=== PATIENT | male | born 1995 | race American Indian/Alaskan Native ===

== ENCOUNTER 2018-07-07 21:27 | Emergency (ER) | payer SELFPAY ==
[2018-07-07 22:05] VITALS: BMI 24.4
[2018-07-07 23:13] VITALS: RESP 20
[2018-07-07] MEDS ORDERED: Sodium Chloride 0.9% 1,000 ML IV STA (23:40)
[2018-07-08 01:22] LABS: ALB/GLOB RATIO 1.1 (1.1-1.8); ALBUMIN 4.3 g/dL (3.0-4.8); ALT/SGPT 21 U/L (7-56); AST/SGOT 38 U/L (17-59); BLOOD UREA NITROGEN 18 mg/dL (7-21); CALCIUM 9.6 mg/dL (8.4-10.5); GFR NON-AFRICAN AMERICAN > 60; LIPASE 50 U/L (23-300)
[2018-07-08 01:28] LABS: BASO # 0.02 K/mm3 (0.0-2.0); BASO % 0.2 % (0.0-3.0); EOS # 0.2 (0.0-0.7); EOS % 2.3 % (1.5-5.0); GRAN # 6.2 (1.4-6.5); GRAN % 71.8 % (50.0-68.0); HEMOGLOBIN 14.1 g/dL (14.0-18.0); LYMPH # 1.6 (1.2-3.4); LYMPH % 18.7 % (22.0-35.0); MEAN CELL VOLUME 83.8 fl (80.0-105.0); MEAN CORPUSCULAR HEMOGLOBIN 28.3 pg (25.0-35.0); MEAN CORPUSCULAR HGB CONC 33.7 g/dl (31.0-37.0); MEAN PLATELET VOLUME 10.2 fl (7.0-11.0); MONO # 0.6 (0.1-0.6); RBC 4.99 10^6/uL (3.5-6.1); RED CELL DISTRIBUTION WIDTH 12.8 % (11.5-14.5); WHITE BLOOD COUNT 8.6 10^3/uL (4.5-11.0)
--- NOTE | 2018-07-08 02:40 | ED PDOC ---
Arrival/HPI - History of Present Illness Narrative History of Present Illness (Text): 07/08/18 02:36 23 yo M Patient complains of generalized crampy abdominal pain, associated with nausea, multiple episodes of vomiting and diarrhea, which started a few hours after eating take out pizza. Otherwise: (-) travel, (-) sick contacts, (-) fever, (-) recent antibiotic use, (-) hematochezia. Has no other symptoms or complaints. <Melissa Garcia PA-C - Last Filed: 07/08/18 02:36> <Naun Russell - Last Filed: 07/08/18 02:49> - General Chief Complaint: Abdominal Pain Time Seen by Provider: 07/07/18 22:07 Past Medical History - Infectious Disease Hx of Infectious Diseases: None - Psychiatric Hx Substance Use: No <Melissa Garcia PA-C - Last Filed: 07/08/18 02:36> Family/Social History Family/Social History: No Known Family HX Smoking Status: Never Smoked Hx Alcohol Use: No Hx Substance Use: No <Melissa Garcia PA-C - Last Filed: 07/08/18 02:36> Allergies/Home Meds <Melissa Garcia PA-C - Last Filed: 07/08/18 02:36> <Naun Russell - Last Filed: 07/08/18 02:49> Allergies/Adverse Reactions: Allergies No Known Allergies Allergy (Verified 07/07/18 22:05) Review of Systems - Review of Systems Constitutional: absent: Fatigue, Fevers Respiratory: absent: SOB, Cough, Sputum Cardiovascular: absent: Chest Pain, Palpitations Gastrointestinal: Abdominal Pain, Diarrhea, Nausea, Vomiting Genitourinary Male: absent: Dysuria, Frequency Musculoskeletal: absent: Arthralgias, Back Pain Skin: absent: Rash, Pruritis, Skin Lesions Neurological: absent: Headache, Dizziness <Melissa Garcia PA-C - Last Filed: 07/08/18 02:36> Physical Exam Vital Signs Temp Pulse Resp BP Pulse Ox 07/08/18 01:31 98.1 F 76 20 143/65 99 07/07/18 22:10 98.4 F 74 20 139/60 99 Temperature: Afebrile Blood Pressure: Normal Pulse: Regular Respiratory Rate: Normal Appearance: Positive for: Well-Appearing, Non-Toxic, Comfortable Pain Distress: Mild Mental Status: Positive for: Alert and Oriented X 3 - Systems Exam Head: Present: Atraumatic, Normocephalic Pupils: Present: PERRL Extroacular Muscles: Present: EOMI Conjunctiva: Present: Normal Mouth: Present: Moist Mucous Membranes Neck: Present: Normal Range of Motion Respiratory/Chest: Present: Clear to Auscultation, Good Air Exchange. No: Respiratory Distress, Accessory Muscle Use Cardiovascular: Present: Regular Rate and Rhythm, Normal S1, S2. No: Murmurs Abdomen: No: Tenderness, Distention, Peritoneal Signs Back: Present: Normal Inspection Upper Extremity: Present: Normal Inspection. No: Cyanosis, Edema Lower Extremity: Present: Normal Inspection. No: Edema Neurological: Present: GCS=15, CN II-XII Intact, Speech Normal Skin: Present: Warm, Dry, Normal Color. No: Rashes Psychiatric: Present: Alert, Oriented x 3, Normal Insight, Normal Concentration <Melissa Garcia PA-C - Last Filed: 07/08/18 02:36> Vital Signs Temp Pulse Resp BP Pulse Ox 07/08/18 01:31 98.1 F 76 20 143/65 99 07/07/18 22:10 98.4 F 74 20 139/60 99 <Naun Russell - Last Filed: 07/08/18 02:49> Medical Decision Making - Lab Interpretations Lab Results: 07/08/18 00:17 07/08/18 00:17 Lab Results 07/08/18 00:17: Sodium 137, Potassium 4.3, Chloride 103, Carbon Dioxide 27, Anion Gap 11, BUN 18, Creatinine 1.0, Est GFR ( Amer) > 60, Est GFR (Non- Af Amer) > 60, Random Glucose 86, Calcium 9.6, Magnesium 1.9, Total Bilirubin 0.9, AST 38, ALT 21, Alkaline Phosphatase 80, Total Protein 8.2, Albumin 4.3, Globulin 3.9, Albumin/Globulin Ratio 1.1, Lipase 50 07/08/18 00:17: WBC 8.6, RBC 4.99, Hgb 14.1, Hct 41.8 L, MCV 83.8, MCH 28.3, MCHC 33.7, RDW 12.8, Plt Count 246, MPV 10.2, Gran % 71.8 H, Lymph % (Auto) 18.7 L, [place] % (Auto) 7.0 H, Eos % (Auto) 2.3, Baso % (Auto) 0.2, Gran # 6.20, Lymph # (Auto) 1.6, [place] # (Auto) 0.6, Eos # (Auto) 0.2, Baso # (Auto) 0.02 - Medication Orders Current Medication Orders: Discontinued Medications Famotidine (Pepcid) 20 mg IVP STAT STA Stop: 07/07/18 23:41 Last Admin: 07/08/18 00:27 Dose: 20 mg IVP Administration Document 07/08/18 00:27 [facility] (Rec: 07/08/18 00:27 [id number] Charges for Administration # of IVP Administrations 1 Sodium Chloride (Sodium Chloride 0.9%) 1,000 mls @ 1,000 mls/hr IV .Q1H STA Stop: 07/08/18 00:39 Last Admin: 07/08/18 00:27 Dose: 1,000 mls/hr eMAR Start Stop Document 07/08/18 00:27 [facility] (Rec: 07/08/18 00:28 [id number] Intravenous Solution Start Date 07/08/18 Start Time 00:27 End Date 07/08/18 End time 00:28 Total Infusion Time 1 Ondansetron HCl (Zofran Inj) 4 mg IVP STAT STA Stop: 07/07/18 23:41 Last Admin: 07/08/18 00:28 Dose: 4 mg IVP Administration Document 07/08/18 00:28 [facility] (Rec: 07/08/18 00:28 [id number] Charges for Administration # of IVP Administrations 1 <Melissa Garcia PA-C - Last Filed: 07/08/18 02:36> - Lab Interpretations Lab Results: 07/08/18 00:17 07/08/18 00:17 Lab Results 07/08/18 00:17: Sodium 137, Potassium 4.3, Chloride 103, Carbon Dioxide 27, Anion Gap 11, BUN 18, Creatinine 1.0, Est GFR ( Amer) > 60, Est GFR (Non- Af Amer) > 60, Random Glucose 86, Calcium 9.6, Magnesium 1.9, Total Bilirubin 0.9, AST 38, ALT 21, Alkaline Phosphatase 80, Total Protein 8.2, Albumin 4.3, Globulin 3.9, Albumin/Globulin Ratio 1.1, Lipase 50 07/08/18 00:17: WBC 8.6, RBC 4.99, Hgb 14.1, Hct 41.8 L, MCV 83.8, MCH 28.3, MCHC 33.7, RDW 12.8, Plt Count 246, MPV 10.2, Gran % 71.8 H, Lymph % (Auto) 18.7 L, [place] % (Auto) 7.0 H, Eos % (Auto) 2.3, Baso % (Auto) 0.2, Gran # 6.20, Lymph # (Auto) 1.6, [place] # (Auto) 0.6, Eos # (Auto) 0.2, Baso # (Auto) 0.02 - Medication Orders Current Medication Orders: Discontinued Medications Famotidine (Pepcid) 20 mg IVP STAT STA Stop: 07/07/18 23:41 Last Admin: 07/08/18 00:27 Dose: 20 mg IVP Administration Document 07/08/18 00:[address] [facility] (Rec: 07/08/18 00:27 [id number]) Charges for Administration # of IVP Administrations 1 Sodium Chloride (Sodium Chloride 0.9%) 1,000 mls @ 1,000 mls/hr IV .Q1H STA Stop: 07/08/18 00:39 Last Admin: 07/08/18 00:27 Dose: 1,000 mls/hr eMAR Start Stop Document 07/08/18 00:27 [facility] (Rec: 07/08/18 00:28 [id number] Intravenous Solution Start Date 07/08/18 Start Time 00:27 End Date 07/08/18 End time 00:28 Total Infusion Time 1 Ondansetron HCl (Zofran Inj) 4 mg IVP STAT STA Stop: 07/07/18 23:41 Last Admin: 07/08/18 00:28 Dose: 4 mg IVP Administration Document 07/08/18 00:28 [facility]CS (Rec: 07/08/18 00:28 [id number]) Charges for Administration # of IVP Administrations 1 <Naun Russell - Last Filed: 07/08/18 02:49> - PA / PHONE TECHNICIAN / Resident Statement REID has reviewed & agrees with the documentation as recorded. <Melissa Garcia PA-C - Last Filed: 07/08/18 02:36> - PA / PHONE TECHNICIAN / Resident Statement REID has reviewed & agrees with the documentation as recorded. <YvonneNaun - Last Filed: 07/08/18 02:49> Disposition/Present on Arrival - Present on Arrival Any Indicators Present on Arrival: No History of DVT/PE: No History of Uncontrolled Diabetes: No Urinary Catheter: No History of Decub. Ulcer: No History Surgical Site Infection Following: None - Disposition Have Diagnosis and Disposition been Completed?: Yes Disposition Time: 02:30 Patient Plan: Discharge <Melissa Garcia PA-C - Last Filed: 07/08/18 02:36> <YvonneNaun - Last Filed: 07/08/18 02:49> - Disposition Diagnosis: Acute gastroenteritis Disposition: HOME/ ROUTINE Patient Problems: Current Active Problems Problem Status Onset Acute gastroenteritis Acute Condition: STABLE Discharge Instructions (ExitCare): Gastroenteritis (DC), Gastroenteritis (GEN) Additional Instructions: Thank you for letting us take care of you today. You were treated for acute gastroenteritis. The emergency medical care you received today was directed at your acute symptoms. If you were prescribed any medication, please fill it and take as directed. It may take several days for your symptoms to resolve. Return to the Emergency Department if your symptoms worsen, do not improve, or if you have any other problems. Please contact your doctor in 2 days for re-evaluation and follow up. Bring any paperwork you were given at discharge with you along with any medications you are taking to your follow up visit. Our treatment cannot replace ongoing medical care by a primary care provider (PCP) outside of the emergency department. Thank you for allowing the [facility] team to be part of your care today. Prescriptions: Dicyclomine [Bentyl] 20 mg PO QID PRN #20 tab PRN Reason: Other Ondansetron ODT [Zofran ODT] 4 mg PO DAILY PRN #20 odt PRN Reason: Nausea/Vomiting Referrals: PCP,NO [Primary Care Provider] - Follow up with primary Forms: [employer] ([place]), SCHOOL NOTE
[2018-07-08 02:55] VITALS: BP 141/85; PULSE 88; TEMP 97.8; O2SAT 100
== END 2018-07-08 02:55 | disposition home or self-care (01) ==
LOC: ED 21:27
DX: K52.9 Noninfective gastroenteritis and colitis, unspecified (principal)
CPT/HCPCS: 80053; 83690; 83735; 85025; 96374; 96375; 99283; J2405; J7030

== ENCOUNTER 2018-12-06 08:47 | Emergency (ER) | payer MEDICAID ==
[2018-12-06 08:50] VITALS: BMI 25.0
[2018-12-06] MEDS ORDERED: DiphenhydrAMINE 50 mg/ml Inj IVP STA (09:17)
[2018-12-06] MEDS ORDERED: Sodium Chloride 0.9% 1,000 ML IV STA (09:19)
--- NOTE | 2018-12-06 09:21 | ED PDOC ---
Arrival/HPI <Opal Hamilton - Last Filed: 12/06/18 12:02> - General Historian: Patient, Parent (Mother) - History of Present Illness Narrative History of Present Illness (Text): 12/06/18 09:16 A 23 year old male, with no significant past medical history, presents to the emergency department with a complaint of headache, generalized body aches, cough, and associated nausea. Patient notes that his headache began yesterday at around 1:30 PM. Patient notes that he took Ibuprofen at around 9 PM yesterday which improved his symptoms. Patient states that he woke up with the headache today and body aches. Patient notes that he has experienced headaches in the [place] [address], but states that this is the worst headache of his life. He denies fevers, chills, dizziness, chest pain, shortness of breath, dyspnea on exertion, abdominal pain, vomiting, diarrhea, urinary/bowel changes, or any other complaint. Symptom Onset: Sudden Symptom Course: Unchanged Activities at Onset: Rest, Light Context: Home <Antwon Vasquez - Last Filed: 12/08/18 14:33> - General Chief Complaint: Headache Past Medical History - Provider Review Nursing Documentation Reviewed: Yes - Infectious Disease Hx of Infectious Diseases: None - Psychiatric Hx Substance Use: No <Antwon Vasquez - Last Filed: 12/08/18 14:33> Family/Social History - Physician Review Nursing Documentation Reviewed: Yes Family/Social History: No Known Family HX Smoking Status: Never Smoked Hx Alcohol Use: No Hx Substance Use: No <Antwon Vasquez - Last Filed: 12/08/18 14:33> Allergies/Home Meds <Opal Hamilton - Last Filed: 12/06/18 12:02> <Antwon Vasquez - Last Filed: 12/08/18 14:33> Allergies/Adverse Reactions: Allergies No Known Allergies Allergy (Verified 12/06/18 08:50) Home Medications: Home Meds Medication Instructions Recorded Confirmed No Known Home Med 12/06/18 12/06/18 Review of Systems - Physician Review All systems were reviewed & negative as marked: Yes - Review of Systems Constitutional: absent: Fevers Respiratory: Cough. absent: SOB Cardiovascular: absent: Chest Pain, SCHRADER Gastrointestinal: Nausea. absent: Abdominal Pain, Stool Changes, Diarrhea, Vomiting Genitourinary Male: absent: Urinary Output Changes Musculoskeletal: Myalgias (Generalized body aches) Neurological: Headache. absent: Dizziness <Antwon Vasquez - Last Filed: 12/08/18 14:33> Physical Exam Vital Signs Temp Pulse Resp BP Pulse Ox 12/06/18 08:50 98.7 F 91 H 16 124/51 L 98 <Opal Hamilton - Last Filed: 12/06/18 12:02> Vital Signs Reviewed: Yes Vital Signs Temp Pulse Resp BP Pulse Ox 12/06/18 08:50 98.7 F 91 H 16 124/51 L 98 Temperature: Afebrile Blood Pressure: Hypotensive Pulse: Tachycardic Respiratory Rate: Normal Appearance: Positive for: Well-Appearing, Non-Toxic, Comfortable Pain Distress: None Mental Status: Positive for: Alert and Oriented X 3 - Systems Exam Head: Present: Atraumatic, Normocephalic Pupils: Present: PERRL Extroacular Muscles: Present: EOMI Conjunctiva: Present: Normal Mouth: Present: Moist Mucous Membranes Pharnyx: No: ERYTHEMA, EXUDATE, Uvular Deviation (Uvula midline) Neck: Present: Normal Range of Motion Respiratory/Chest: Present: Clear to Auscultation, Good Air Exchange. No: Respiratory Distress, Accessory Muscle Use Cardiovascular: Present: Regular Rate and Rhythm, Normal S1, S2. No: Murmurs Abdomen: No: Tenderness, Distention, Peritoneal Signs Back: Present: Normal Inspection Upper Extremity: Present: Normal Inspection, Neurovascularly Intact (Good strength). No: Cyanosis, Edema Lower Extremity: Present: Normal Inspection, Neurovascularly Intact (Good strength). No: Edema Neurological: Present: GCS=15, CN II-XII Intact, Speech Normal Skin: Present: Warm, Dry, Normal Color. No: Rashes Psychiatric: Present: Alert, Oriented x 3, Normal Insight, Normal Concentration <Antwon Vasquez - Last Filed: 12/08/18 14:33> Medical Decision Making ED Course and Treatment: 12/06/18 12:04 Explained to patient the benefits of staying for further work-up and treatment. Explained the risks of leaving, including but not limited to, worsening of symptoms, infection, sepsis, blindness/deafness, disability, coma, and . Patient acknowledged understanding and still decided to leave against medical advise. - Lab Interpretations Lab Results: PT 13.0 SECONDS (9.4-12.5) H 12/06/18 09:26 INR 1.15 12/06/18 09:26 APTT 31.6 Seconds (26.9-38.3) 12/06/18 09:26 Total Bilirubin 1.4 mg/dL (0.2-1.3) H 12/06/18 09:26 AST 33 U/L (17-59) 12/06/18 09:26 ALT 24 U/L (7-56) 12/06/18 09:26 Alkaline Phosphatase 86 U/L (38-126) 12/06/18 09:26 Total Protein 8.3 g/dL (5.8-8.3) 12/06/18 09:26 Albumin 4.5 g/dL (3.0-4.8) 12/06/18 09:26 Globulin 3.8 gm/dL 12/06/18 09:26 Albumin/Globulin Ratio 1.2 (1.1-1.8) 12/06/18 09:26 - RAD Interpretation Radiology Orders: 12/06/18 09:17 HEAD W/O CONTRAST [CT] Stat - Medication Orders Current Medication Orders: Discontinued Medications Acetaminophen (Tylenol 325mg Tab) 975 mg PO STAT STA Stop: 12/06/18 09:20 Last Admin: 12/06/18 09:31 Dose: 975 mg MAR Pain/Vitals Document 12/06/18 09:31 [facility] (Rec: 12/06/18 09:[id number]) Pain Reassessment Is This A Pain ReAssessment? No Sleep Is patient sleeping during reassessment? No Presence of Pain Presence of Pain Yes Pain Scale Used Protocol: PSCALES Pain Scale Used Numeric Location Pain Location Body Industrial Economist Description Constant Intensity 8 Scale Used Numeric Pain Behavior Facial Grimacing Aggravating Factors Changing Position Alleviating Factors Medication Diphenhydramine HCl (Benadryl) 25 mg IVP STAT STA Stop: 12/06/18 09:18 Last Admin: 12/06/18 09:38 Dose: 25 mg IVP Administration Document 12/06/18 09:38 [facility] (Rec: 12/06/18 09:[id number]) Charges for Administration # of IVP Administrations 1 Sodium Chloride (Sodium Chloride 0.9%) 1,000 mls @ 999 mls/hr IV .Q1H1M STA Stop: 12/06/18 10:19 Last Admin: 12/06/18 09:39 Dose: 999 mls/hr eMAR Start Stop Document 12/06/18 09:39 [email or web address] (Rec: 12/06/18 09:39 [email or web address] [id number]) Intravenous Solution Start Date 12/06/18 Start Time 09:39 Metoclopramide HCl (Reglan) 10 mg IVP STAT STA Stop: 12/06/18 09:18 Last Admin: 12/06/18 09:38 Dose: 10 mg IVP Administration Document 12/06/18 09:38 [email or web address] (Rec: 12/06/18 09:38 [email or web address] [id number]) Charges for Administration # of IVP Administrations 1 <Opal Hamilton - Last Filed: 12/06/18 12:02> ED Course and Treatment: 12/06/18 09:23 Impression: A 23 year old male presents to the emergency department with a complaint of headache, generalized body aches, cough, and nausea. Differential Diagnosis included but are not limited to: Viral syndrome Headache rule out SH Plan: -- Head CT -- Labs -- Tylenol, Benadryl, Reglan, and IV Fluids -- Reassess and disposition Progress Notes: PROCEDURE: CT HEAD WITHOUT CONTRAST Dictator : Moose Pruitt MD Report Date : 12/06/2018 11:03:56 IMPRESSION: No acute findings 12/06/18 11:46: Patient consented to Lumbar Puncture. 12/06/18 11:57: Patient is now refusing Lumbar Puncture. Leaving Against Medical Advice (AMA): The patient is choosing to leave against medical advice. I have personally explained to the patient that choosing to do so may result in permanent bodily harm, disability, or . I have discussed at great length that without further evaluation and monitoring there may be unforeseen circumstances and/or deterioration causing permanent bodily harm or as a result of their choice. The patient is alert, oriented, and shows the mental capacity to make clear decisions regarding the patients health care at this time. The patient continues to wish to leave against medical advice. In light of the patients decision to leave against medical advice, follow-up has been arranged and the patient is aware of the importance to following up as instructed. The patient has been advised that they should return to the emerge ncy room immediately if they change their mind at any time, or if their condition begins to change or worsen in any way. - Lab Interpretations I have reviewed the lab results: Yes <Antwon Vasquez - Last Filed: 12/08/18 14:33> - PA / [employer] / Resident Statement / has reviewed & agrees with the documentation as recorded. MD/ has examined the patient and agrees with the treatment plan. - Scribe Statement The provider has reviewed the documentation as recorded by the Sigifredo Win Provider Scribe Attestation: All medical record entries made by the Scribe were at my direction and personally dictated by me. I have reviewed the chart and agree that the record accurately reflects my personal performance of the history, physical exam, medical decision making, and the department course for this patient. I have also personally directed, reviewed, and agree with the discharge instructions and disposition. <Antwon Vasquez - Last Filed: 12/08/18 14:33> Disposition/Present on Arrival - Present on Arrival Any Indicators Present on Arrival: No History of DVT/PE: No History of Uncontrolled Diabetes: No Urinary Catheter: No History of Decub. Ulcer: No History Surgical Site Infection Following: None - Disposition Have Diagnosis and Disposition been Completed?: Yes Disposition Time: 12:03 Patient Plan: Other (AMA) <Opal Hamilton - Last Filed: 12/06/18 12:02> - Present on Arrival Any Indicators Present on Arrival: No History of DVT/PE: No History of Uncontrolled Diabetes: No Urinary Catheter: No History of Decub. Ulcer: No History Surgical Site Infection Following: None - Disposition Have Diagnosis and Disposition been Completed?: Yes <Antwon Vasquez - Last Filed: 12/08/18 14:33> - Disposition Diagnosis: Headache Disposition: AGAINST MEDICAL ADVICE Condition: GUARDED Referrals: Richard Lujan Jr., MD [Primary Care Provider] - Follow up with primary Forms: [employer] (Niuean)
[2018-12-06 09:35] LABS: BASO # 0.02 K/mm3 (0.0-2.0); BASO % 0.1 % (0.0-3.0); EOS # 0.1 (0.0-0.7); EOS % 0.5 % (1.5-5.0); HEMOGLOBIN 13.9 g/dL (14.0-18.0); LYMPH # 1.6 (1.2-3.4); LYMPH % 11.6 % (22.0-35.0); MEAN CELL VOLUME 83.6 fl (80.0-105.0); MEAN CORPUSCULAR HEMOGLOBIN 27.5 pg (25.0-35.0); MEAN CORPUSCULAR HGB CONC 32.9 g/dl (31.0-37.0); MEAN PLATELET VOLUME 9.8 fl (7.0-11.0); MONO # 1.3 (0.1-0.6); MONO % 9.4 % (1.0-6.0); RBC 5.05 10^6/uL (3.5-6.1); RED CELL DISTRIBUTION WIDTH 12.9 % (11.5-14.5); WHITE BLOOD COUNT 13.4 10^3/uL (4.5-11.0)
[2018-12-06 09:47] LABS: ALB/GLOB RATIO 1.2 (1.1-1.8); ALBUMIN 4.5 g/dL (3.0-4.8); ALT/SGPT 24 U/L (7-56); AST/SGOT 33 U/L (17-59); BLOOD UREA NITROGEN 15 mg/dL (7-21); CALCIUM 9.5 mg/dL (8.4-10.5); GFR NON-AFRICAN AMERICAN > 60
[2018-12-06 09:52] LABS: INR 1.15; PARTIAL THROMBOPLASTIN TIME 31.6 Seconds (26.9-38.3)
[2018-12-06] MEDS ORDERED: Morphine 4 mg/ml ISec IVP STA (10:07)
--- NOTE | 2018-12-06 11:07 | CT ---
Date of service: 12/06/2018 PROCEDURE: CT HEAD WITHOUT CONTRAST. HISTORY: r/o bleed COMPARISON: None available. TECHNIQUE: Axial computed tomography images were obtained through the head/brain without intravenous contrast. Radiation dose: Total exam DLP = 982.03 mGy-cm. This CT exam was performed using one or more of the following dose reduction techniques: Automated exposure control, adjustment of the mA and/or kV according to patient size, and/or use of iterative reconstruction technique. FINDINGS: HEMORRHAGE: No intracranial hemorrhage. BRAIN: No mass effect or edema. No atrophy or chronic microvascular ischemic changes. VENTRICLES: Unremarkable. No hydrocephalus. CALVARIUM: Unremarkable. PARANASAL SINUSES: Unremarkable as visualized. No significant inflammatory changes. MASTOID AIR CELLS: Unremarkable as visualized. No inflammatory changes. OTHER FINDINGS: None. IMPRESSION: No acute findings
[2018-12-06 12:13] VITALS: PULSE 90; RESP 19
[2018-12-06 12:14] VITALS: BP 129/78; TEMP 98; O2SAT 98
== END 2018-12-06 12:14 | disposition left against medical advice (07) ==
LOC: ED 08:47
DX: R51 Headache (principal)
CPT/HCPCS: 70450; 80053; 85025; 85610; 85730; 96374; 96375; 99285; J1200; J2765; J7030